=== PATIENT | male | born 1985 | race Two or more races ===

== ENCOUNTER 2017-08-26 19:11 | Emergency (ER) | payer SELFPAY ==
[~2017-08-26] VITALS: Ht 167.6 cm; Wt 74.0 kg
[2017-08-26 19:20] VITALS: BP 121/75
[2017-08-26] MEDS ORDERED: ALBUTEROL/IPRATROPIUM 2.5MG/0.5MG, 3 ML ONE (19:52)
[2017-08-26] MEDS ORDERED: ALBUTEROL/IPRATROPIUM 2.5MG/0.5MG, 3 ML NPPB ONE (20:00)
== END 2017-08-26 20:44 | disposition home or self-care (01) ==
LOC: ED 20:20
DX: J20.9 Acute bronchitis, unspecified (principal); B96.89 Other specified bacterial agents as the cause of diseases classified elsewhere; J01.20 Acute ethmoidal sinusitis, unspecified
CPT/HCPCS: 71046; 94640; 99284; J7512; J7620